=== PATIENT | female | born 1930 | race Asian ===

== ENCOUNTER → 2017-01-13 | Outpatient (CLI) | payer OTHER ==
[~2017-01-13] MED LIST: AMLO-511 PO; ATEN50TA PO; CARV10CR PO; DIGO250T73 PO; LORA1TAB3 PO; LOSA100T8 PO; METO5TAB87 PO; NITR0.4T27 SL; OMEP20 PO; TRIAMCINOLONE ACETON; [UNRECOGNIZED DRUG - CODE] PO
== END | disposition home or self-care (01) ==
LOC: RADPV 08:56
PROVIDERS: ATTEND Internal Medicine
DX: M81.0 Age-related osteoporosis without current pathological fracture (principal); M40.209 Unspecified kyphosis, site unspecified; M85.88 Other specified disorders of bone density and structure, other site
CPT/HCPCS: 77080

== ENCOUNTER 2017-07-19 22:08 | Emergency (ER) | payer OTHER ==
[~2017-07-19] VITALS: Ht 160 cm; Wt 59.0 kg
[~2017-07-19 22:08] MED LIST changes: +LOSA100T2 PO; -LOSA100T8 PO; -NITR0.4T27 SL; +NITR0.4T50 SL
[2017-07-19] MEDS ORDERED: DIGO125T PO (22:19)
[2017-07-19] MEDS ORDERED: LISI-662 PO (22:19)
[2017-07-19] MEDS ORDERED: NYST15CR2 TP (22:19)
[2017-07-19] MEDS ORDERED: RIVA15T PO (22:19)
[2017-07-19] MEDS ORDERED: ATEN100T PO (22:19)
[2017-07-19] MEDS ORDERED: SIMV-259 PO (22:19)
[2017-07-19] MEDS ORDERED: AMLO-512 PO (22:19)
[2017-07-19 22:49] LABS: BASOPHILS % (AUTO) 0.3 % (0.0-2.0); EOSINOPHILS % (AUTO) 0.7 % (1.0-6.0); HEMATOCRIT 36.3 % (36-46); HEMOGLOBIN 11.6 g/dL (12.0-16.0); LYMPHOCYTES % (AUTO) 21.2 % (22.0-44.0); MEAN CORPUSCULAR HGB CONC 32.1 G/dL (31.0-37.0); MEAN CORPUSCULAR VOLUME 81 fL (80-100); MONOCYTES # (AUTO) 0.5 K/uL (0.1-1.0); NEUTROPHILS % (AUTO) 72.8 % (40.0-70.0); PLATELET COUNT (AUTO) 284 K/uL (150-450); RED BLOOD CELL COUNT(AUTO) 4.49 MIL/uL (4.00-5.20); RED CELL DISTRIBUTION WIDTH 15.9 % (11.5-14.5); WHITE BLOOD COUNT (AUTO) 9.6 K/uL (4.5-11.0)
[2017-07-19 22:53] LABS: CALCIUM, TOTAL 9.5 mg/dL (8.8-10.5); CREATININE 0.97 mg/dL (0.60-1.30); POTASSIUM 3.6 mmol/L (3.5-5.1)
[2017-07-19 22:59] LABS: ALBUMIN 3.5 g/dL (3.4-5.0); BILIRUBIN,TOTAL 0.3 mg/dL (0.1-1.0); TOTAL PROTEIN, SERUM 9.2 g/dL (6.4-8.2)
[2017-07-19] MEDS ORDERED: SODIUM CHLORIDE 0.9% 250 ML IV ONE (23:00)
[2017-07-19] MEDS ORDERED: BARIUM SULFATE 0.1% SUSPENSION 450 ML BOTTLE PO ONE (23:00)
[2017-07-19] MEDS ORDERED: ONDANSETRON HCL 4 MG/2 ML VIAL IVP ONE (23:00)
[2017-07-19] MEDS ORDERED: HYDROmorphone 2 MG/ML SYRINGE IVP ONE (23:00)
[2017-07-19] MEDS ORDERED: SODIUM CHLORIDE 0.9% 100 ML ONE (23:57)
[2017-07-19] MEDS ORDERED: IOVERSOL 350 MG/ML 100 ML VIAL ONE (23:57)
[2017-07-20 00:38] LABS: APPEARANCE,URINE CLEAR (CLEAR); GLUCOSE, URINE (UA) NEGATIVE (NEGATIVE); KETONES,URINE NEGATIVE (NEGATIVE); LEUKOCYTE ESTERASE ,URINE NEGATIVE (NEGATIVE); OCCULT BLOOD,URINE NEGATIVE (NEGATIVE); PROTEIN,URINE NEGATIVE (NEGATIVE)
[2017-07-20 01:11] LABS: ADD UA MICROSCOPIC YES; RBC,URINE 0-2 /HPF (0-2); SQUAMOUS EPITHELIAL CELL,UR Rare /LPF (None Seen); WBC,URINE 0-2 /HPF (0-5)
[2017-07-20 01:53] VITALS: BP 153/75
== END 2017-07-20 02:37 | disposition home or self-care (01) ==
LOC: EMS 22:10
DX: K29.70 Gastritis, unspecified, without bleeding (principal); I25.10 Atherosclerotic heart disease of native coronary artery without angina pectoris; I11.9 Hypertensive heart disease without heart failure; E78.00 Pure hypercholesterolemia, unspecified; I48.91 Unspecified atrial fibrillation; K21.9 Gastro-esophageal reflux disease without esophagitis
CPT/HCPCS: 36415; 71010; 74177; 80053; 81001; 83690; 84484; 85025; 87077; 87086; 87186; 93005; 96361; 96374; 96375; 99285; J1170; J2405; J7040; J7050; Q9967